=== PATIENT | female | born 1970 | race Hispanic/Latino ===

== ENCOUNTER 2024-12-06 22:07 | Emergency (ER) | payer OTHER ==
[~2024-12-06] VITALS: Ht 160 cm; Wt 78.0 kg
--- NOTE | 2024-12-06 22:27 | ERN ---
ED Note History of Present Illness Stated Complaint: EPIGASTRIC PAIN RADIATING TO LEFT SIDE OF CHEST patient comes in because she has had some epigastric pain. That has radiates to the left side of her abdomen. She is status post cholecystectomy. No right lower quadrant no periumbilical denies any chestpan or shortness of breath Chief Complaint: Abdominal Pain Time Seen by MD: 22:20 Allergies: Coded Allergies: No Known Allergies (Unverified Allergy, Unknown, 12/06/24) Past Medical History Past Medical History: No Pertinent History Surgical History: Cholecystectomy Review of System Dictation Constitutional: Negative for fever,chills, and weight loss Eyes: Negative for injury, pain,redness, and discharge ENT: Negative for injury,pain or swelling Cardiovascular: Negative for chest pain, palpitations, and edema Respiratory: Negative for shortness of breath, cough, and wheezing, Abdomen/GI: Negative for abdominal pain, nausea, vomiting, diarrhea, and constipation Back: Negative for injury and pain : Negative for injury, bleeding and discharge MS/Extremity: Negative for injury and deformity Skin: Negative for rash, and discoloration Neuro: Negative for headache, weakness, numbness, tingling, and seizure Psych: Negative for suicide ideation, homicidal ideation, and hallucinations Epigastric pain tender to palpation Initial Vital Sign VS Vital Signs Date Time Temp Pulse Resp B/P (MAP) Pulse Ox O2 Delivery O2 Flow Rate FiO2 12/06/24 22:11 98.1 74 20 129/71 100 Room Air 12/06/24 22:30 0 21 Physical Exam Dictation General: awake, alert, NAD Head/Face: Normocephalic, atraumatic Eyes: PERRL, EOMI, vision at baseline ENT: oral cavity clear, TMs clear, no signs of infection Neck: Trachea midline, supple, no nuchal rigidity Cardiovascular: RRR, normal S1/S2, No MRGs, no JVD Respiratory: CTAB, no respiratory distress, No rales or wheezes Abdomen: Soft, non-tender, non-distended, normal bowel sounds, no guarding or rebound. Skin: Warm, dry, normal turgor, no rash MS/Extremity: Pulses equal, no cyanosis, neurovascular intact, FROM Neuro: COAx4, GCS 15, strength 5/5, CN 2-12 intact, normal cerebellar exam, normal gait, Psych: Normal behavior, mood, and affect normal Does have some epigastric abdominal pain tender to palpation no right lower quadrant pain no periumbilical pain no CVA flank pain tenderness Results (Laboratory/Radiology) Laboratory/Radiology Laboratory Tests Test 12/06/24 22:36 White Blood Count 7.4 K/uL (4.8-10.8) Red Blood Count 3.99 MIL/uL (4.00-5.50) L Hemoglobin 12.7 g/dL (12.0-16.0) Hematocrit 36.9 % (36-48) Mean Corpuscular Volume 92.5 fL (79-99) Mean Corpuscular Hemoglobin 31.8 pg (27.0-33.0) Mean Corpuscular Hemoglobin Concent 34.4 g/dL (32.0-36.0) Red Cell Distribution Width 13.1 % (11.0-15.5) Platelet Count 270 K/uL (130-400) Mean Platelet Volume 9.7 fL (7.5-10.5) Immature Granulocyte % (Auto) 0.3 % (0-1) Neutrophils (%) (Auto) 49.9 % (40.0-77.0) Lymphocytes (%) (Auto) 33.9 % (21.0-51.0) Monocytes (%) (Auto) 13.6 % (3.0-13.0) H Eosinophils (%) (Auto) 1.6 % (0.0-8.0) Basophils (%) (Auto) 0.7 % (0.0-5.0) Neutrophils # (Auto) 3.7 K/uL (1.8-7.7) Lymphocytes # (Auto) 2.5 K/uL (1.0-4.8) Monocytes # (Auto) 1.0 K/uL (0.1-1.0) Eosinophils # (Auto) 0.12 K/uL (0.00-0.70) Basophils # (Auto) 0.05 K/uL (0.00-0.20) Absolute Immature Granulocyte (auto 0.02 K/uL (0-1) Nucleated Red Blood Cells 0.0 % (0.0-0.19) Sodium Level 140 mmol/L (136-145) Potassium Level 3.7 mmol/L (3.5-5.1) Chloride Level 105 mmol/L (101-111) Carbon Dioxide Level 30 mmol/L (21-32) Blood Urea Nitrogen 11 mg/dL (7-18) Creatinine 0.7 mg/dL (0.5-1.0) Glomerular Filtration Rate Calc 103 mL/min (>90) Random Glucose 86 mg/dL (70-105) Total Calcium 8.8 mg/dL (8.5-10.1) Total Bilirubin 0.4 mg/dL (0.2-1.0) Aspartate Amino Transf (AST/SGOT) 18 U/L (10-37) Alanine Aminotransferase (ALT/SGPT) 24 U/L (12-78) Alkaline Phosphatase 87 U/L (50-136) Troponin I High Sensitivity < 4 ng/L (4-50) L Total Protein 7.5 g/dL (6.0-8.3) Albumin 3.9 g/dL (3.5-5.0) Lipase 43 U/L (16-77) ED Course ED Course Orders Procedure Category Date Status Time Cbc With Differential LAB 12/06/24 Complete 22:24 Comprehensive LAB 12/06/24 Complete Metabolic Panel 22:24 Troponin I High LAB 12/06/24 Complete Sensitivity 22:24 12 Lead Ekg Tracing- EKG 12/06/24 Logged Technical 22:24 Lactated Ringers PHA 12/06/24 Complete 1000ml (Lactated 22:30 Morphine 4mg Syg PHA 12/06/24 Complete (Morphine 4mg Syg) 22:30 Ondansetron 4mg Inj PHA 12/06/24 Complete (Zofran 4mg Inj) 22:30 Lidocaine Hcl 2% PHA 12/06/24 Complete Viscous (Lidocaine Hcl 22:30 Ct Abdomen/Pelvis W/O CT 12/06/24 Resulted Contrast 22:24 Chest 1vw RAD 12/06/24 Resulted 22:24 Lipase LAB 12/06/24 Complete 22:24 Mag/Alum/Simeth 30ml PHA 12/06/24 Complete (Maalox Plus 30ml) 23:00 Mag/Alum/Simeth 30ml PHA 12/06/24 Complete (Maalox Plus 30ml) 23:01 Current Medications Medications (Trade) Dose Ordered Sig/Cindi Route PRN Reason Start Time Stop Time Status Last Admin Dose Admin Al Hydroxide/Mg Hydroxide (MAALox PLUS 30ML) 30 ml ONCE ONCE PO 12/06/24 23:00 12/06/24 23:04 DC 12/06/24 23:10 Al Hydroxide/Mg Hydroxide (MAALox PLUS 30ML) 30 ml STK-MED ONCE .ROUTE 12/06/24 23:01 12/06/24 23:01 DC Lactated Ringer's 1,000 ml @ 0 mls/hr ONCE ONCE IV 12/06/24 22:30 12/06/24 22:31 DC 12/06/24 23:10 Lidocaine HCl (Lidocaine HCl 2% Viscous) 10 ml ONCE ONCE PO 12/06/24 22:30 12/06/24 22:31 DC 12/06/24 23:10 Morphine Sulfate (morPHINE 4MG SYG) 4 mg ONCE ONCE IVP 12/06/24 22:30 12/06/24 22:31 DC Ondansetron HCl (zoFRAN 4MG INJ) 4 mg ONCE ONCE IVP 12/06/24 22:30 12/06/24 22:31 DC 12/06/24 23:11 Vital Signs Date Time Temp Pulse Resp B/P (MAP) Pulse Ox O2 Delivery O2 Flow Rate FiO2 12/06/24 22:30 98.2 66 18 118/46 100 Room Air* 0 21 12/06/24 22:11 98.1 74 20 129/71 100 Room Air Medical Decision Making MDM The patient is status post cholecystectomy. No signs of appendicitis likely GERD gastritis dyspepsia intestinal colic. Says has been stooling daily without difficulty denies any chest pain shortness of breath exertional chest pain exertional shortness of breath MDM: Differential diagnosis: Rationale: Tests considered and ordered secondary to shared decision making include: Previous outside records reviewed: Old ER visits. Risk of complication and/or morbidity or mortality of patient management: None Medications-Per medication reconciliation Need for hospitalization: Patient does not meet criteria for hospitalization. Need for emergency major/minor surgery: No There are no social concerns with this patient. Prescription drug management Prescriptions will include symptomatic care Patient's prior external medical records from other ER visits were reviewed by me as indicated. Prior testing and results from previous visits were reviewed. Prior tests were taken into account with medical decision making and resource utilization, independent historian/historians were used to obtain complete medical history. I independently interpreted the test that were performed, results were reviewed by me and considered findings on radiology if ordered. Medical management and examination interpretation discussions were had by me with other qualified healthcare professionals as indicated for the patient's care. I Mr. Still DX & DISP Disposition: Discharge Departure Impression: Primary Impression: Abdominal pain Condition: Stable Scripts Famotidine (Famotidine) 20 Mg Tablet 1 TAB PO BID for 30 Days, #60 TAB 0 Refills Prov: DAREN GONZALEZ MD 12/06/24 Referrals: NONE (PCP) DAREN GONZALEZ MD Dec 06, 2024 22:27
[2024-12-06 22:51] LABS: IMMATURE GRANULOCYTE ABSOLUTE 0.02 K/uL (0-1); NUCLEATED RED BLOOD CELLS 0.0 % (0.0-0.19); PLATELET COUNT (AUTO) 270 K/uL (130-400); RED BLOOD CELL COUNT(AUTO) 3.99 MIL/uL (4.00-5.50); RED CELL DISTRIBUTION WIDTH 13.1 % (11.0-15.5); WHITE BLOOD COUNT (AUTO) 7.4 K/uL (4.8-10.8)
[2024-12-06 22:55] LABS: CREATININE 0.7 mg/dL (0.5-1.0); GLOMERULAR FILTR. RATE CALC 103.0 mL/min (>90); GLUCOSE,RANDOM 86.0 mg/dL (70-105); SODIUM SERUM 140.0 mmol/L (136-145); UREA NITROGEN, BLOOD 11.0 mg/dL (7-18)
[2024-12-06 23:02] LABS: ASPARTATE AMINOTRANSFERASE 18.0 U/L (10-37); TOTAL PROTEIN, SERUM 7.5 g/dL (6.0-8.3)
[2024-12-06] MEDS: MAG/ALUM/SIMETH 30 ML UDCUP PO ONE (23:10)
[2024-12-06] MEDS: LIDOCAINE HCL 2% VISCOUS 15 ML UDCUP PO ONE (23:10)
[2024-12-06] MEDS: LACTATED RINGERS 1000ML 1,000 ML IV ONE (23:10)
[2024-12-06] MEDS: MAG/ALUM/SIMETH 30 ML UDCUP ONE (23:11)
--- NOTE | 2024-12-06 23:24 | HMCIMG ---
EXAM: CR Chest, 1 view CLINICAL HISTORY: Pain. COMPARISON: None provided. FINDINGS: The lungs show no infiltrates or other acute findings. No pleural effusion or pneumothorax. The cardiomediastinal silhouette is within normal limits. No acute osseous abnormality. IMPRESSION: No acute cardiopulmonary process is evident. /[place]
--- NOTE | 2024-12-06 23:35 | HMCIMG ---
EXAM: CT Abdomen and Pelvis Without IV contrast. CLINICAL HISTORY: Patient presents with abdominal pain. TECHNIQUE: Axial computed tomography images of the abdomen and pelvis without intravenous contrast. CONTRAST: No IV contrast. COMPARISON: None provided. FINDINGS: LUNG BASES: The lung bases are clear. No pleural effusion. LIVER: Diffuse hepatic steatosis. GALLBLADDER AND BILE DUCTS: The gallbladder is surgically absent. No biliary ductal dilatation. PANCREAS: Normal. SPLEEN: Normal. ADRENAL GLANDS: Normal. KIDNEYS, URETERS, AND BLADDER: No hydronephrosis, hydroureter, or urinary calculi. The urinary bladder is suboptimally distended with mild diffuse wall thickening. STOMACH AND BOWEL: Small hiatus hernia. No bowel wall thickening. No perforation or collection. No bowel obstruction. APPENDIX: No acute appendicitis. PERITONEUM: No free fluid or free air. LYMPH NODES: No lymphadenopathy. REPRODUCTIVE: Unremarkable as visualized. VASCULATURE: No abdominal aortic aneurysm. Few bilateral pelvic phleboliths. BONES: Multilevel thoracolumbar spondylosis. No acute osseous abnormality. IMPRESSION: No acute abnormality in the abdomen or pelvis. /[place]
[2024-12-06] MEDS ORDERED: FAMO20TA8 PO (23:54)
[2024-12-07 00:12] VITALS: BP 122/54; PULSE 70; RESP 18; TEMP 98.4; O2SAT 100
--- NOTE | 2024-12-07 02:32 | EKG ---
[facility] Test Date: 2024-12-06 Test Time: 22:27:07 Pat Name: BRAD BOND Department: [facility] Room: Gender: F Contracts Officer: [id number] : 1970 Requested By: DAREN GONZALEZ Order Number: [id number] Reading MD: Bharati Arguelles Measurements Intervals [place] Rate: 74 P: 44 [place]: 110 QRS: -25 QRSD: 101 T: 8 QT: 406 QTc: 452 Interpretive Statements Sinus rhythm Left ventricular hypertrophy No previous ECG available for comparison Electronically Signed On 12-07-2024 08:28:48 CDT by Bharati Arguelles Please click the below link to view image of tracing.
== END 2024-12-07 00:14 | disposition home or self-care (01) ==
LOC: EDH 22:07
DX: R10.13 Epigastric pain (principal); Z90.49 Acquired absence of other specified parts of digestive tract
CPT/HCPCS: 99285; 74176; 96374; 71045; 96361; 84484; 80053; 83690; 85025; 36415; 93005; J7120; J2405